=== PATIENT | female | born 1975 | race American Indian/Alaskan Native ===

== ENCOUNTER 2017-03-30 20:00 | Emergency (ER) | payer OTHER ==
[2017-03-30] MEDS ORDERED: TYLENOL ONE (20:18)
[2017-03-30] MEDS ORDERED: TYLENOL PO ONE (20:23)
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
[2017-03-31] MEDS ORDERED: MOTRIN PO ONE (04:34)
[2017-03-31] MEDS ORDERED: ROBAXIN PO ONE (04:34)
[2017-03-31 05:10] VITALS: BP 137/56
== END 2017-03-31 05:10 | disposition home or self-care (01) ==
LOC: ED 20:00
DX: M54.2 Cervicalgia (principal); M54.5 Low back pain; Z88.6 Allergy status to analgesic agent; Z88.1 Allergy status to other antibiotic agents; Z88.0 Allergy status to penicillin; Z88.2 Allergy status to sulfonamides; V49.40XA Driver injured in collision with unspecified motor vehicles in traffic accident, initial encounter; Y93.89 Activity, other specified; Y92.89 Other specified places as the place of occurrence of the external cause; Y99.8 Other external cause status
CPT/HCPCS: 99282